=== PATIENT | male | born 1985 | race Hispanic/Latino ===

== ENCOUNTER 2017-09-12 01:30 | Emergency (ER) | payer BC ==
[2017-09-12 01:46] VITALS: O2SAT 95
--- NOTE | 2017-09-12 03:36 | ED PDOC ---
HPI: Psych/Substance Abuse Time Seen by Provider: 09/12/17 01:39 Chief Complaint (Nursing): Alcohol Ingestion Chief Complaint (Provider): Alcohol Ingestion History Per: Patient, EMS History/Exam Limitations: no limitations Onset/Duration Of Symptoms: Mins (prior to arrival) Current Symptoms Are (Timing): Still Present Past Medical History Reviewed: Historical Data, Nursing Documentation, Vital Signs Vital Signs: Last Vital Signs Temp 97.7 F 09/12/17 01:35 Pulse 65 09/12/17 01:35 Resp 18 09/12/17 01:35 BP 110/68 09/12/17 01:35 Pulse Ox 95 09/12/17 01:35 - Allergies Allergies/Adverse Reactions: Allergies Allergy/AdvReac Type Severity Reaction Status Date / Time No Known Allergies Allergy Verified 09/12/17 03:14 Review of Systems ROS Statement: Except As Marked, All Systems Reviewed And Found Negative Physical Exam - Reviewed Nursing Documentation Reviewed: Yes Vital Signs Reviewed: Yes - Physical Exam Comments: GENERAL APPEARANCE: Patient is awake, alert, oriented x 3, in no acute distress. SKIN: Warm, dry; (-) cyanosis HEAD: (-) scalp swelling, (-) scalp tenderness. EYES: (-) conjunctival pallor, (-) scleral icterus, (-) nystagmus. ENMT: Mucous membranes moist. Airway patent: (-) stridor. NECK: (-) tenderness, (-) stiffness, (-) lymphadenopathy. CHEST AND RESPIRATORY: (-) rales, (-) rhonchi, (-) wheezes; breath sounds equal. ABDOMEN: Soft, (-) distention, (-) tenderness, (-) guarding. NEURO AND PSYCH: Mental status as above. 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 Pupils equal and reactive; EOMI; (-) facial asymmetry ; tongue and uvula midline. Strength and DTRs symmetric. - ECG O2 Sat by Pulse Oximetry: 95 (RA) Pulse Ox Interpretation: Normal Medical Decision Making Medical Decision Making: Patient states he has no one to call to pick him up, but does not mind staying a few hours to sober up and then leave. Intends to use public transportation to go home. Scribe Attestation: Documented by Rosibel Childress, acting as a scribe for Jenise Lehman PA-C. Provider Scribe Attestation: All medical record entries made by the Scribe were at my direction and personally dictated by me. I have reviewed the chart and agree that the record accurately reflects my personal performance of the history, physical exam, medical decision making, and the department course for this patient. I have also personally directed, reviewed, and agree with the discharge instructions and disposition. Disposition - Disposition
--- NOTE | 2017-09-12 03:37 | ED PDOC ---
HPI: Psych/Substance Abuse Time Seen by Provider: 09/12/17 01:39 Chief Complaint (Nursing): Alcohol Ingestion Chief Complaint (Provider): Alcohol Ingestion History Per: Patient, EMS History/Exam Limitations: no limitations Onset/Duration Of Symptoms: Mins (prior to arrival) Current Symptoms Are (Timing): Still Present Additional Complaint(s): 32 year old male [place] the emergency department via EMS [place]. Patient admits to drinking, but states he has no other complaints. Otherwise (-) trauma, (-) injury, (-) pain, (-) SI/HI. Past Medical History Reviewed: Historical Data, Nursing Documentation, Vital Signs Vital Signs: Last Vital Signs Temp 97.7 F 09/12/17 01:35 Pulse 65 09/12/17 01:35 Resp 18 09/12/17 01:35 BP 110/68 09/12/17 01:35 Pulse Ox 95 09/12/17 01:35 - Medical History PMH: No Chronic Diseases - Surgical History Surgical History: No Surg Hx - Family History Family History: States: Unknown Family Hx - Allergies Allergies/Adverse Reactions: Allergies Allergy/AdvReac Type Severity Reaction Status Date / Time No Known Allergies Allergy Verified 09/12/17 03:14 Review of Systems ROS Statement: Except As Marked, All Systems Reviewed And Found Negative Constitutional: Negative for: Other (no trauma or injury) Musculoskeletal: Negative for: Other (pain complaints) Psych: Positive for: Other (alcohol intoxication) Physical Exam - Reviewed Nursing Documentation Reviewed: Yes Vital Signs Reviewed: Yes - Physical Exam Comments: GENERAL APPEARANCE: Patient is awake, alert, oriented x 3, in no acute distress. SKIN: Warm, dry; (-) cyanosis HEAD: (-) scalp swelling, (-) scalp tenderness. EYES: (-) conjunctival pallor, (-) scleral icterus, (-) nystagmus. ENMT: Mucous membranes moist. Airway patent: (-) stridor. NECK: (-) tenderness, (-) stiffness, (-) lymphadenopathy. CHEST AND RESPIRATORY: (-) rales, (-) rhonchi, (-) wheezes; breath sounds equal. ABDOMEN: Soft, (-) distention, (-) tenderness, (-) guarding. NEURO AND PSYCH: Mental status as above. 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 Pupils equal and reactive; EOMI; (-) facial asymmetry ; tongue and uvula midline. Strength symmetric. Ambulatory with a normal gait. - ECG O2 Sat by Pulse Oximetry: 95 (RA) Pulse Ox Interpretation: Normal Medical Decision Making Medical Decision Makin Patient states he has no one to call to pick him up, but does not mind staying a few hours to sober up and then leave. Intends to use public transportation to go home. 0330 Patient is sleeping comfortably in no acute distress, breathing easy and unlabored. 0515 Patient is awake, alert and oriented x3. Patient speaking in full sentences, no slurred speech, no tremors. Ambulating in a steady gait. Patient is stable for discharge. Scribe Attestation: Documented by Rosibel Childress, acting as a scribe for Jenise Lehman PA-C. Provider Scribe Attestation: All medical record entries made by the Scribe were at my direction and personally dictated by me. I have reviewed the chart and agree that the record accurately reflects my personal performance of the history, physical exam, medical decision making, and the department course for this patient. I have also personally directed, reviewed, and agree with the discharge instructions and disposition. Disposition - Clinical Impression Clinical Impression: Alcohol intoxication - Patient ED Disposition Is Patient to be Admitted: No - Disposition Referrals: [facility] [Outside] Disposition: Routine/Home Disposition Time: 05:15 Condition: STABLE Additional Instructions: Rest, drink plenty of water. Follow up with your doctor or the clinic. Return to the ER at any time for any new or worsening symptoms. 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
[2017-09-12 05:38] VITALS: BP 114/72; PULSE 66; RESP 16; TEMP 97.9
== END 2017-09-12 05:38 | disposition home or self-care (01) ==
LOC: H.ER 01:30
DX: F10.129 Alcohol abuse with intoxication, unspecified (principal)